=== PATIENT | female | born 1955 | race Caucasian/White ===

== ENCOUNTER 2017-05-05 17:47 | Inpatient (IN) | payer SELFPAY ==
[~2017-05-05] VITALS: Ht 160 cm; Wt 74.9 kg
[2017-05-05] MEDS ORDERED: Ondansetron 2 mg/mL 2 mL Inj IVPUSH PRN (18:55)
[2017-05-05] MEDS ORDERED: Alum-Mag Hydrox-Simeth 30 mL Suspension PO PRN ×2 (18:55)
[2017-05-05] MEDS ORDERED: Polyethylene Glycol (PEG) 17 Gm Powder PO PRN ×2 (18:55)
[2017-05-05 19:20] VITALS: BP 108/75; PULSE 101; RESP 16; O2SAT 98
--- NOTE | 2017-05-05 19:20 | NUR ---
Arrival to [facility] Patient arrives to [facility] at 1835 via transport gurney alert and oriented. Patient able to transfer self to bed. Patient arrives eating ice, patient and family advised that she will have to be NPO from this point until diet orders are clarified. Patient states she does have some pain to the abdomen but states is is currently at a tolerable level. Preexisting IV patent and saline locked until further orders are received. Care is ongoing.
[2017-05-05] MEDS ORDERED: HYDROmorphone 1 mg/mL Inj IVPUSH PRN (19:45)
[2017-05-05] MEDS: 0.9% Sodium Chloride 1,000 ML IV SCH (19:45)
[2017-05-05] MEDS: Ondansetron 2 mg/mL 2 mL Inj IVPUSH PRN (20:52)
[2017-05-05] MEDS: HYDROmorphone 1 mg/mL Inj IVPUSH PRN (20:52)
--- NOTE | 2017-05-05 23:27 | PCM.HPMED ---
Subjective Date of Service May 05, 2017 Primary Provider: Admitting Physician: Valarie Adorno DO Primary Care Physician: Kellen Attending Physician: Valarie Adorno DO Chief Complaint: Abdominal pain, nausea and vomiting. History of Present Illness: Ms. 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 Patient reports feeling fine yesterday and around 10:30 this morning she had some mild stomach pain, and suddenly developed 10/10 non radiating sharp left lower abdominal pain and intractable nausea and vomiting. He daughter, Janice, then urged her to the ED at [facility]. She reports many episodes similar to today over the last 5 years, but has declined to see a physician or visit the hospital. The daughter asked if this could be related to "drinking alcohol?" The patient does not believe she will withdraw from ETOH. She reports drinking plenty of water daily. She reports 30 pound weight loss in the last year without trying, although she states she doesn't eat much. She reports fevers, chills, nausea, vomiting, chronic dry cough, abdominal pain. She denies syncope, headache, chest pain, shortness of breath, diarrhea, dysuria. In the room patients vitals: T-37.1, HR-101, RR-16, BP-108/75, 98% 2L. CTA at [facility] - Upload was of very poor quality and a request was made for reupload. There was perinephric stranding, no stone reported, hydronephrosis of theleft side. at [facility] patient received: Levofloxacin, zofran, dilaudid IV, IV NS fluids. Notable Labs at [facility]. WBC 1.9, plt 121, Lipase 300, UA neg Review of Systems: A comprehensive review of systems was conducted with the patient and found to be negative except as above in the History of Present Illness. Allergies Coded Allergies: Penicillins (Verified Adverse Reaction, Severe, RED RASH ON ARMS, 05/05/17) Home Medications NONE. PMH Rib fx cercial strain, chronic back pain arthritis Surgical History Tubal ligation Family History Father - CHF Mother - Cervical cancer Social History Hx Alcohol Use: Yes (regularly, not everyday per pt) Hx Substance Use: Yes (Daily marijuana) Hx Tobacco Use: Yes Exam Vital Signs Vital Sign - Last Date Time Temp Pulse Resp B/P Pulse Ox O2 Delivery O2 Flow Rate FiO2 05/05/17 19:20 37.1 101 16 108/75 98 Nasal Cannula 2.00 Exam General: Lady lying in bed in acute distress, well-developed, well-nourished, appropriately interactive HEENT: Normocephalic, atraumatic. External ears without defect. Pupils equal, round, and reactive to light and accommodation. Anicteric sclerae, dry conjunctivae, and no lid lag. Oropharynx free of erythema and cobble stoning with dry mucosa. Neck: Supple with full range of motion. No jugular venous distension. No bruits. No lymphadenopathy or thyromegaly. Cardiovascular: Regular rate and rhythm with no murmurs, rubs, or gallops appreciated Pulmonary: Clear to auscultation bilaterally with no crackles, wheezes, or rhonchi. Normal respiratory effort with no use of accessory muscles. Abdomen: Bowel tones present. Soft, tender to palpation in left lower quadrant, rebound tenderness present, nondistended. No hepatosplenomegaly or masses appreciated. Extremities: No clubbing, cyanosis, edema, or lymphadenopathy appreciated. Skin: Normal temperature, turgor, and texture; no rash, ulcers, or subcutaneous nodules appreciated. Neurological: Cranial nerves grossly intact. Normal muscle strength, tone, and bulk. Reflexes, coordination, and sensory function within normal limits. No known gait impairment. Psychiatric: Normal mood and affect. Alert and oriented to person, place, and time. Assessment & Plan Ms. 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 Patient is admitted under inpatient status. Acute on Chronic Abdominal pain and nausea and vomiting. Present on admission. Active. - possibly 2nd to alcohol related pancreatitis, vs acute ureteral obstruction. - CT of poor quality, Left sided hydronephrosis and perinephric stranding, stone present in distal left ureter, possible diverticula with fecalith in descending colon. reviewed on admission but awaiting official read. - Elevated lipase of 300 at [facility]. - Likely bowel rest following urological intervention. - Consider GI consult. - Dr. Braswell with urology has been consulted, planning for stent placement tomorrow (discussed plan of care on admission). NPO after midnight. - Continue supportive care, IV fluids NS @ 100 ml / hr, IV zofran prn, IV Dilaudid. Leukopenia, Present on admission. Active. - WBC 1.9 - Patient also reports 30 pound weight loss in the last year. - Consider osteopathic resident consult. Thrombocytopenia, Present on admission. Active. - Platelets - 119. - Monitory. Alcohol use. - Patient does not believe she'll withdraw. - Low threshold for CIWA. History of HSV 2. - Last outbreak 1 week ago. Tobacco dependance - Does not believe she'll need nicotine patch. - Discussed tobacco cessation with patient. Acetaminophen for mild pain when necessary. Bowel regimen Senna and MiraLAX scheduled and PRN. Zofran when necessary for nausea and vomiting. SubQ heparin held for now. SCDs in place. High-risk medications: IV Dilaudid. Patient Status: Patient is admitted under inpatient status with expected length of stay greater than 2 midnights due to severity of presenting symptoms, risk of adverse event, and complexity of treatment plan. Pain Evaluation: Adequate Pain Control Resuscitation Status: DNR/DNI:Do Not Resuscitate/Intubate Attending Statement The patient was seen and examined together with house staff on 05/05/2017 and I agree with the history, exam and plan as outlined in the note above. CESAR BENNETT DO May 05, 2017 20:58 Valarie Adorno DO May 06, 2017 03:35
[2017-05-06] VITALS (12 sets, daily range): BP systolic 93–122; BP diastolic 60–83; PULSE 81–109; RESP 14–19; O2SAT 93–100
[2017-05-06] MEDS: HYDROmorphone 1 mg/mL Inj IVPUSH PRN (00:30)
[2017-05-06] MEDS ORDERED: HYDROmorphone 1 mg/mL Inj IVPUSH PRN (04:30)
[2017-05-06] MEDS ORDERED: cefTRIAXone Inj 1,000 MG in Dextrose 5% Minibag Plus 50 ML IV SCH (05:00)
[2017-05-06 05:15] LABS: Mean Corpuscular Hemoglobin 34.3 pg (27.0-35.0); Mean Corpuscular Volume 99.7 fL (81-100); Platelet Count 88 bil/L (150-400)
--- NOTE | 2017-05-06 05:32 | NUR ---
Activity Pt direct transfer from [place]. NPO for urology -stent placement this morning. NS @ 100 and swabs at bedside okay for dry mouth, per MD. IV Zofran given once at start of shift for N/V. Asymptomatic since dose given. IV Dilaudid 2mg given twice this shift for abdominal/shoulder pain. New orders for 0.5-1mg IV Dilaudid, has not had dose since 29. Per pt, pain levels currently 5 out of 10 with movement/activity only. Bowel tones present ,abdomen soft, round and tender to palpation.
[2017-05-06 05:33] LABS: BASOPHILS % (AUTO) 0 % (0-3); EOSINOPHILS % (AUTO) 0 % (0-5); MONOCYTES % (AUTO) 0 % (4-12); NEUTROPHILS % (AUTO) 86 % (40-74)
[2017-05-06 05:43] LABS: Magnesium 1.3 mg/dL (1.6-2.6)
[2017-05-06] MEDS ORDERED: Magnesium Sulf 4 Gm/100 mL H2O 4 GM in IV Premix 1 EACH IV ONE (07:40)
--- NOTE | 2017-05-06 07:48 | NUR ---
0730 notified that per [facility] (fax pending), blood culturesx2 positive for e. coli. Pt stable in bed. Will monitor.
[2017-05-06] MEDS: 0.9% Sodium Chloride 1,000 ML IV SCH ×3 (08:05→18:05)
[2017-05-06] MEDS ORDERED: 0.9% Sodium Chloride 1,000 ML IV ONE ×2 (08:05)
--- NOTE | 2017-05-06 09:38 | PCM.PNSURG ---
Subjective Visit Information: Reason for Visit Left Sided Abdominal Pain,Nausea And Vomiting Surgery/Surgery Date Post-Op Day # Date of Admission: May 05, 2017 at 18:59 Hospital Day # Objective Vital Sign- Last 8 Hours Date Time Temp Pulse Resp B/P Pulse Ox O2 Delivery O2 Flow Rate FiO2 05/06/17 08:02 96 93/65 96 Room Air 05/06/17 04:23 37.1 101 16 94/60 95 Nasal Cannula 2.00 Intake and Output- Last 8 Hour 05/06/17 Cumulative From/Thru 07:00 05/05/17 19:21 - 05/06/17 05:28 Intake Total 1152 ml 1152 ml Output Total 250 ml 250 ml Balance 902 ml 902 ml Intake Oral 400 ml 400 ml IV Total 752 ml 752 ml Output Urine Total 250 ml 250 ml # Voids 2 2 Result Diagram: 05/06/17 0505 05/06/17 0505 Assessment & Plan Impression LEFT hydroureteronephrosis of unclear etiology and, by report, E coli bacteremia Problems: Plan I spoke with Ms Lutz by phone for 22 minutes. I spoke with her daughter Janice Buckley for 14 minutes after speaking with Ms Lutz: pt requested I speak with her daughter. I reviewed with both of them: - The nature of her CT findings - That the hydro reflects partial urinary obstruction, which is likely contributing to her pain and her infection I repeatedly explained this to Ms Lutz until she voiced understanding. Her daughter expressed clear understanding. Pt appears to demonstrate some cognitive problems, which may stem from her alcoholism. I do think ureteral stent will improve her pain and hasten recovery from her bacteremia. Options were discussed: - Do nothing/wait and see - Cysto, stent placement We discussed the temporary nature of the stent in great detail - [place] pt experience postop We discussed risks at length She and her daughter understand the stent must be removed at some point; if she fails to comply, she could injure her kidney or risk loss of its function. Ultimately, they wished to proceed. Resuscitation Status: DNR/DNI:Do Not Resuscitate/Intubate Nerissa Braswell MD May 06, 2017 09:38
--- NOTE | 2017-05-06 10:20 | NUR ---
Status MD notified/aware of low trending BP's (which pt states is baseline) and mild tachycardia (resolved) so far this am). Other VSS. MD notified of urology plan for cystoscopy and left ureteral stent. Per MD, may wait for fluid bolus completion to hang magnesium. Pt pain controlled. VSS Will continue to monitor
[2017-05-06] MEDS: cefTRIAXone Inj 2,000 MG in Dextrose 5% Minibag Plus 50 ML IV SCH ×2 (11:00→11:51)
--- NOTE | 2017-05-06 11:35 | PCM.HPSURG ---
Subjective Date of Service: May 06, 2017 Referring Provider: Admitting Physician: Valarie Adorno DO Primary Care Physician: Nopcp Attending Physician: Paco Rajan MD Chief Complaint 61 F with LEFT abdominal pain and hydroureteronephrosis. History of Present Illness Ms Lutz is a 61 F with moderate LEFT hydro and abdominal pain. By report, 2 bottles of blood cx returned + for E coli. She has had low BPs and has been intermittently tachycardic. She now presents for LEFT ureteral stent after detailed discussion with her and her daughter. Allergy Allergies: Coded Allergies: Penicillins (Verified Adverse Reaction, Severe, RED RASH ON ARMS, 05/05/17) Social History Hx Alcohol Use: Yes (regularly, not everyday per pt) Hx Substance Use: Yes (Daily marijuana) Hx Tobacco Use: Yes PMH HEENT History History of ENT Problems?: No Cardiovascular History History of Heart Problems?: No Respiratory History of Respiratory Problem: No Neurological History Hx Neurologic Problems?: No Neurological History: Positive for:: Headaches (yes, lately) Denies:: Alzheimer's Disease CVA Dementia Dizziness Parkinson's Disease Seizures Gastrointestinal History HX of GI Problems?: No Gastrointestinal History: Positive for:: Heartburn Denies:: Diverticulitis Gastrointestinal Bleeding Hepatitis Hiatal Hernia Rectal Bleeding Genitourinary History Hx of Gu Problems?: No Musculoskeletal History Hx Musculoskeletal Problems?: No Musculoskeletal History: Denies:: Back Injury Joint Replacement Musculoskeletal Trauma Psycho Social History Hx of Psycho/Social Problems?: No Psycho Social History: Denies:: Anxiety Bipolar Disorder Hx Depression Suicide Attempt Other History Other History: Denies:: Cancer Hospitalization Thyroid Disease Diabetes: No Social History Hx Alcohol Use: Yes (regularly, not everyday per pt)Hx Substance Use: Yes ( Daily marijuana)Hx Tobacco Use: Yes Assessment & Plan Assessment LEFT hydro VTE Mechanical Devices: Intermittant Pneumatic CD Plan: Cysto, LEFT ureteral stent Resuscitation Status: DNR/DNI:Do Not Resuscitate/Intubate Nerissa Braswell MD May 06, 2017 11:35
[2017-05-06] MEDS ORDERED: Dexamethasone 4 mg/mL Inj ONE (11:51)
[2017-05-06] MEDS ORDERED: Propofol 10 mg/mL 20 mL Inj ONE (11:51)
[2017-05-06] MEDS ORDERED: Lactated Ringer's 1,000 ML IV ONE (11:51)
[2017-05-06] MEDS ORDERED: Ondansetron 2 mg/mL 2 mL Inj ONE (11:51)
[2017-05-06] MEDS ORDERED: Phenylephrine/NS 100 mCg/mL 10 mL Syringe IVPUSH ONE (11:51)
[2017-05-06] MEDS ORDERED: fentaNYL-PF 50 mCg/mL 2 mL Inj ONE (11:51)
[2017-05-06] MEDS ORDERED: MetoCLOpramide 5 mg/mL 2 mL Inj ONE (11:51)
[2017-05-06] MEDS ORDERED: Glycopyrrolate 0.2 MG/ML 1mL Inj ONE (11:51)
--- NOTE | 2017-05-06 11:53 | NUR ---
OR Pt to OR at about 1140. Stable. Chart with pt. Magnesium provided prior to transport. OR to hang 1100 antibiotic. Addendum: 05/06/17 at 1402 by RUDY INMAN RN Pt back from OR at 1250. Stable and w/o complaints. Fatigued. VSS. Placed on CPOX. To advance diet as tolerated. Expectations post op explained by OR staff to pt and family. Will monitor.
[2017-05-06] MEDS ORDERED: Lactated Ringer's 1,000 ML IV SCH (12:12)
[2017-05-06] MEDS ORDERED: Lactated Ringer's 500 ML IV PRN (12:12)
[2017-05-06] MEDS ORDERED: MetoCLOpramide 5 mg/mL 2 mL Inj IVPUSH PRN (12:15)
[2017-05-06] MEDS ORDERED: Atropine 0.4 mg/mL Inj IVPUSH PRN (12:15)
[2017-05-06] MEDS ORDERED: EPHEDrine Sulfate 50 mg/mL Inj IVPUSH PRN (12:15)
[2017-05-06] MEDS ORDERED: Ondansetron 2 mg/mL 2 mL Inj IVPUSH PRN (12:15)
[2017-05-06] MEDS ORDERED: Labetalol 5 mg/mL 20 mL Inj IV PRN (12:15)
[2017-05-06] MEDS ORDERED: Albuterol-Ipratropium 3 mL Inhalation Solution NEB PRN (12:15)
[2017-05-06] MEDS ORDERED: Phenylephrine 10,000 mCg/mL Inj IVPUSH PRN (12:15)
[2017-05-06] MEDS ORDERED: fentaNYL-PF 50 mCg/mL 2 mL Inj IVPUSH PRN (12:15)
--- NOTE | 2017-05-06 12:18 | PCM.PNMED ---
Subjective Date of Service May 06, 2017 Subjective Continues to have left flank pain. BP low. Tachycardic. Blood cultures collected at [facility] growing Escherichia coli 2 Exam Vital Signs Vital Sign - Last Date Time Temp Pulse Resp B/P Pulse Ox O2 Delivery O2 Flow Rate FiO2 05/06/17 09:45 94/62 05/06/17 09:33 36.8 05/06/17 08:02 96 96 Room Air 05/06/17 04:23 16 2.00 Intake and Output 05/05/17 05/05/17 05/06/17 Cumulative From/Thru 15:00 23:00 07:00 05/05/17 19:21 - 05/06/17 05:28 Intake Total 1152 ml 1152 ml Output Total 250 ml 250 ml Balance 902 ml 902 ml Intake Oral 400 ml 400 ml IV Total 752 ml 752 ml Output Urine Total 250 ml 250 ml # Voids 2 2 Exam General: Lady lying in bed in acute distress, well-developed, well-nourished, appropriately interactive HEENT: Normocephalic, atraumatic. External ears without defect. Pupils equal, round, and reactive to light and accommodation. Anicteric sclerae, dry conjunctivae, and no lid lag. Oropharynx free of erythema and cobble stoning with dry mucosa. Neck: Supple with full range of motion. No jugular venous distension. No bruits. No lymphadenopathy or thyromegaly. Cardiovascular: Regular rate and rhythm with no murmurs, rubs, or gallops appreciated Pulmonary: Clear to auscultation bilaterally with no crackles, wheezes, or rhonchi. Normal respiratory effort with no use of accessory muscles. Abdomen: Bowel tones present. Soft, tender to palpation in left lower quadrant, rebound tenderness present, nondistended. No hepatosplenomegaly or masses appreciated. Extremities: No clubbing, cyanosis, edema, or lymphadenopathy appreciated. Skin: Normal temperature, turgor, and texture; no rash, ulcers, or subcutaneous nodules appreciated. Neurological: Cranial nerves grossly intact. Normal muscle strength, tone, and bulk. Reflexes, coordination, and sensory function within normal limits. No known gait impairment. Psychiatric: Normal mood and affect. Alert and oriented to person, place, and time. IVs and Medications Medications Reviewed: Medications were reviewed in detail Lab and Diagnostics Result Diagram: 05/06/17 0505 05/06/17 0505 Assessment & Plan Ms. 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 Patient is admitted under inpatient status. # severe sepsis due to left pyelonephritis and susepected pyonephrosis,poa, active,acute -HR 109, BP 92/65, bandemia 20%, initial leukopenia - CT of poor quality, Left sided hydronephrosis and perinephric stranding, stone present in distal left ureter, possible diverticula with fecalith in descending colon. reviewed on admission but awaiting official read. Toscopy - Dr. Braswell with urology has been consulted, planning for stent placement - Continue supportive care, 2 L NS bolus given today due to hypotension. IV fluids NS @ 100 ml / hr, IV zofran prn, IV Dilaudid. -Blood cultures 2 collected at [facility] growing Escherichia coli. Repeat blood culture sent -Ceftriaxone 2 g every 24h #Escherichia coli bacteremia -Due to above #Thrombocytopenia, Present on admission. Active. - Platelets - 119. - Monitory. #Alcohol use. - Patient does not believe she'll withdraw. - Low threshold for CIWA. #History of HSV 2. - Last outbreak 1 week ago. #Tobacco dependance - Does not believe she'll need nicotine patch. - Discussed tobacco cessation with patient. Acetaminophen for mild pain when necessary. Bowel regimen Senna and MiraLAX scheduled and PRN. Zofran when necessary for nausea and vomiting. SubQ heparin held for now. SCDs in place. High-risk medications: IV Dilaudid. Disposition:2-3 days VTE Mechanical Devices: Intermittant Pneumatic CD Resuscitation Status: DNR/DNI:Do Not Resuscitate/Intubate Paco Rajan MD May 06, 2017 12:18
[2017-05-06 12:45] LABS: APPEARANCE,URINE CLEAR (CLEAR,HAZY); COLOR,URINE YELLOW (YELLOW); OCCULT BLOOD,URINE SMALL (NEGATIVE); UROBILINOGEN,URINE NORMAL (NORMAL)
--- NOTE | 2017-05-06 13:04 | OP ---
[address] [address] OPERATIVE REPORT PATIENT: VU EVANGELISTA : 1955 MR#: [id number] ADMIT: 05/05/2017 JOB ID: [id number] DATE OF SURGERY: 05/06/2017 SURGEON: Nerissa Braswell MD BRONZER: None. PREOPERATIVE DIAGNOSIS(ES): Left hydroureteronephrosis. POSTOPERATIVE DIAGNOSIS(ES): Left hydroureteronephrosis. PROCEDURE PERFORMED: 1. Cystoscopy. 2. Left retrograde pyelogram. 3. Left ureteral stent placement. FINDINGS: 1. Essentially normal left retrograde pyelogram without finding of hydronephrosis or any filling defect. 2. Normal appearing bladder. 3. Orthotopic ureteral orifices. ANESTHESIA: General. ESTIMATED BLOOD LOSS: None. DRAINS: A 6 x 22 left double-J ureteral stent. COMPLICATIONS: None. CONDITION: Stable. INDICATION FOR PROCEDURE: The patient is a 61-year-old woman with left abdominal pain and a finding of moderate left hydroureteronephrosis. She now presents for the aforementioned procedure. DESCRIPTION OF PROCEDURE: After informed consent was obtained, the patient was taken to the operating room. A time-out was performed identifying correct patient, surgical site, and procedure. General anesthesia was smoothly induced. She was given intravenous antibiotics just prior to start of procedure. She was placed in the lithotomy position and all pressure points were identified and appropriately padded. Her genitals were then prepped and draped in the usual sterile fashion. A 22-Moldovan rigid cystoscope was applied to patient's urethra and advanced into the bladder. The bladder was drained. The bladder was inspected. It appeared normal. The left ureteral orifice was cannulated with a 5-Moldovan open-ended Pollack catheter. Retrograde pyelogram was performed. It appeared normal. A Sensor tip wire was advanced through the Pollack into the renal pelvis as seen under fluoroscopy. The Pollack was then removed. A 6 x 22 double-J ureteral stent was loaded over it and advanced into the renal pelvis as seen under fluoroscopy. The wire was then removed, leaving a nice coil in the patient's bladder as seen under direct vision. The bladder was drained. The patient was then reversed from general anesthesia and taken to the PACU in good and stable condition. [facility]
--- NOTE | 2017-05-06 13:39 | DRSVH ---
PROCEDURE: X-RAY RETROGRADE UROGRAPHY INDICATIONS: STENT TECHNIQUE: 5 intra-operative images acquired by the Urology service. COMPARISON: Outside Film, CT, CT ABD PELVIS W CON, 05/05/2017, 14:45. FINDINGS: Contrast is injected and partial visualization of the ureter and collecting system of the urinary tract evaluated is obtained. The laterality of the urinary tract evaluated is not provided, but presumably from CT scanning one day ago it is on the left. The prior CT comparison study is from [facility]. The final image available for review it shows a ureteral stent with upper pigtail partially visualized in the central renal collecting system, and the bladder region of the st ent is not available for review. IMPRESSION: Limited study as discussed, presumably reflecting a procedure performed at the left urina ry tract. Stent in place, partially visualized on the final image of the examination. The upper thi rd of the stent is partially visualized, the lower two thirds is not available for review. Dictated by: Justin Abernathy M.D. on 05/06/2017 at 13:33 Approved by: Justin Abernathy M.D. on 05/06/2017 at 13:37
--- NOTE | 2017-05-06 14:40 | PCM.HPANE ---
Patient Data Surgeon Admitting Provider:Valarie Adorno DO Attending Provider:Paco Rajan MD Primary Care Physician:Kellen Other Provider: Reason for Visit Left Sided Abdominal Pain,Nausea And Vomiting Ht/WT & BMI Height (Feet): 5 Height (Inches): 3.00 Weight (Kilograms): 74.900 Body Mass Index 29.26 Allergies Coded Allergies: Penicillins (Verified Adverse Reaction, Severe, RED RASH ON ARMS, 05/05/17) Past Anesthesia History Anesthesia History: Denies:: Abnormal Airway, Anesthesia Reactions, Difficult Intubation, Fam Anesthesia Reaction, Fam Malignant Hypertherm, Malignant Hyperthermia Diabetes History Hx Diabetes?: No MRSA MRSA: No History History of ENT Problems?: No HEENT History: Denies:: Abnormal Airway Cataracts Difficult Intubation Dysphagia Glaucoma Hearing Problem Sinus Problem TMJ Denture Type: Full- Upper Full- Lower Teeth Condition: Within Normal Limits Hx of Heart Problems?: No Cardiovascular History: Denies:: AICD Abdominal Aortic Aneurism Atrial Fibrillation Cardiac Surgery Chest Pain Congestive Heart Failure Coronary Artery Disease Edema Heart Murmur Hypertension Irregular Heartbeat Pacemaker Peripheral Vascular Rheumatic Fever Thrombophlebitis Valvular Heart Disease Hx of Respiratory Problem?: No Respiratory History: Denies:: Asthma COPD Chest Surgery Cough Dyspnea Emphysema Hemoptysis Oxygen Administration Pneumonia Pulmonary Embolism Tuberculosis Use of C-PAP Machine Use of Inhalers / NEBS Hx Neurologic Problems?: No Neurological History: Positive for:: Headaches (yes, lately) Denies:: Alzheimer's Disease CVA Dementia Dizziness Multiple Sclerosis Parkinson's Disease Peripheral Neuropathy Seizures TIA Hx of GI Problems?: No Gastrointestinal History: Denies:: Cirrhosis Diverticulitis Gall Bladder Disease Gastroesphageal Reflux Gastrointestinal Bleeding Heartburn Hepatitis Hiatal Hernia Liver Disease Rectal Bleeding Hx of Problems?: No Genitourinary History: Denies:: HX of Hemodialysis Kidney Stones Urinary Tract Infection HX of Peritoneal Dialysis: No Female Hx: Denies:: Currently Endometriosis Pelvic Inflammatory Problems with Breasts? Skin History: Denies:: History Skin Disorders? Pressure Ulcers Hx Musculoskeletal Problems?: No Musculoskeletal History: Denies:: Back Injury Degenerative Joint Fibromyalgia Joint Replacement Musculoskeletal Trauma Myasthenia Gravis Osteoarthritis Rheumatoid Arthritis Systemic Lupus Hx of Psycho/Social Problems?: No Psycho Social History: Denies:: Anxiety Bipolar Disorder Hx Depression Suicide Attempt Hx Surgeries?: Yes ("tubes tied") Other History: Denies:: Cancer Hospitalization Thyroid Disease History Blood Transfusions: Positive for:: Accept Blood Products? Denies:: Blood Transfuse Reaction Blood Transfusions Hx Diabetes: No Hx Alcohol Use: Yes (regularly, not everyday per pt)Hx Substance Use: Yes ( Daily marijuana)Have You Smoked inLast 12 mo: YesApprox How Many Cigarettes/day : 10 Stop/Bang Treated for Sleep Apnea?: No Do You Have a CPAP Machine?: No S-Snoring: Do You Snore Loudly: Yes T-Tired: feel tired, fatigued: No O-Obsered: Observed not breath: No P-Blood Pressure: treated: No B- Body Mass Index > 35 kg/m2: No A- Age over 50: Yes N- Neck Large Circumference: Yes G- Gender Male: No TRISH Total Score: 2 Risk Assessment Category Category 1A: Patient has history of documented sleep apnea, and HAS NOT received any narcotic, sedative or anesthesia administration during this stay. Category 1B: Patient has history of documented sleep apnea, and HAS received any narcotic , sedative or anesthesia administration during this stay Category 2: Patient has SUSPECTED Obstructive Sleep Apnea, and HAS received any narcotic , sedative or anesthesia administration during this stay. Category 3: Patient has SUSPECTED Obstructive Sleep Apnea and HAS NOT received narcotic, sedative or anesthesia administration during this stay. Category 4: Outpatient in Procedural Areas with known sleep apnea or who screen positive for High Risk via the STOP/BANG questionnaire. Exam Exam Vital Signs Vital Signs Date Time Temp Pulse Resp B/P Pulse Ox O2 Delivery O2 Flow Rate FiO2 05/06/17 09:45 94/62 05/06/17 09:33 36.8 05/06/17 08:02 96 93/65 96 Room Air 05/06/17 04:23 37.1 101 16 94/60 95 Nasal Cannula 2.00 General Appearance: Alert, Oriented X3, Cooperative, No Acute Distress HEENT/AIRWAY: MP 2, Neck Movement, Mouth Opening (3 FBMO) Lungs: Clear to Auscultation, Normal Air Movement Heart: Exam Unremarkable, Regular Rate/Rhythm, No Murmurs/Rubs/Gallops Meds/Labs/Diagnostics Admission Meds Current Medications Sodium Chloride 1,000 ml @ 100 mls/hr Q10H IV Last administered on 05/05/17t 19:45; Start 05/05/17 at 19:45 Ceftriaxone Sodium 1000 mg/ Dextrose/Water 50 ml @ 100 mls/hr Q24H IV Last administered on 05/06/17 05:21; Start 05/06/17 at 05:00; Stop 05/06/17 at 08:05 ; Status DC Sodium Chloride 1,000 ml @ 0 mls/hr Q0M ONCE IV Last administered on 08:12; Start 05/06/17 at 08:05; Stop 05/06/17 at 08:14; Status DC Sodium Chloride (Normal Saline) 1,000 ml @ 0 mls/hr Q0M ONCE IV Last administered on 05/06/17 10:00; Start 05/06/17 at 08:05; Stop 05/06/17 at 08:32 ; Status DC Labs Test 05/06/17 05:05 White Blood Count 9.5th/mm3 (3.8-10.1) Red Blood Count 3.73mil/mm3 (3.90-5.20) Hemoglobin 12.8g/dL (12.0-15.6) Hematocrit 37.2% (35.0-46.0) Mean Corpuscular Volume 99.7fL (81-100) Mean Corpuscular Hemoglobin 34.3pg (27.0-35.0) Mean Corpuscular Hemoglobin Concent 34.4% (32.0-37.0) Red Cell Distribution Width 14.0% (12.3-15.4) Platelet Count 88bil/L (150-400) Neutrophils (%) (Auto) 86% (40-74) Lymphocytes (%) (Auto) 3% (14-46) Monocytes (%) (Auto) 0% (4-12) Eosinophils (%) (Auto) 0% (0-5) Basophils (%) (Auto) 0% (0-3) Band Neutrophils % 20% (1-5) Metamyelocytes % 1% (0-0) Hematology Comments Sodium Level 137mEq/L (134-144) Potassium Level 4.4mEq/L (3.5-5.2) Chloride Level 104mEq/L (97-108) Carbon Dioxide Level 21mmol/L (18-29) Blood Urea Nitrogen 13mg/dL (8-27) Creatinine 0.77mg/dL (0.57-1.00) Estimat Glomerular Filtration Rate 110mL/min (>59) Glucose Level 101mg/dL (60-99) Calcium Level 7.6mg/dL (8.5-10.1) Magnesium Level 1.3mg/dL (1.6-2.6) Total Bilirubin 0.4mg/dL (0.0-1.2) Aspartate Amino Transf (AST/SGOT) 40U/L (0-50) Alanine Aminotransferase (ALT/SGPT) 22U/L (0-32) Alkaline Phosphatase 50U/L (25-165) Total Protein 5.4g/dL (6.4-8.4) Albumin 3.2g/dL (3.4-5.0) Lipase 11U/L (13-60) Plan Impression Patient chart reviewed, patient interviewed and anesthestic plan with risks, benefits, and alternatives discussed, and informed consent obtained. NPO per Anesth. Guidelines: Yes ASA Physical Status: ASA2 Mod Systemic Disease Anesthetic Plan: GA Bene/Risks/Altern/Consents: Yes HP Complete Prior to Induction: Yes Rodríguez Tidwell MD May 06, 2017 10:59
--- NOTE | 2017-05-06 14:41 | PCM.ANEP1 ---
Post Anesthesia PACU Phase 1 Assessment Vital Signs Vital Signs Date Time Temp Pulse Resp B/P Pulse Ox O2 Delivery O2 Flow Rate FiO2 05/06/17 12:55 36.6 101 15 110/76 95 Room Air 05/06/17 12:41 37.2 91 19 101/67 94 Room Air 05/06/17 12:36 94 16 103/71 96 Room Air 05/06/17 12:31 100 17 109/72 96 Room Air 05/06/17 12:26 94 14 103/67 100 Simple Mask 8 05/06/17 12:21 36.9 90 19 96/83 100 Simple Mask 8 05/06/17 09:45 94/62 05/06/17 09:33 36.8 05/06/17 08:02 96 93/65 96 Room Air Anesthetic Administered: GA Level of Alertness: Awake, talking OSBORN's with Equal Strength: Yes Pain: No (RN- in room) Pain Scale Score: 7 Nausea or Vomiting: No CV Function & Hydration Stable: No Airway Device: n/a Oxygen Delivery: Room Air Lungs: Clear to Auscultation, Normal Air Movement Dermatome Level: Full Sensation PACU Phase 2 Assessment Complications: No Follow up Care: N/A Patient Instructions Provided: N/A Rodríguez Tidwell MD May 06, 2017 14:41
[2017-05-06] MEDS: oxyCODONE-Acetamin 10-325 mg Tablet PO PRN ×2 (15:29→21:57)
[2017-05-06] MEDS ORDERED: OMEP20TA24 PO (18:20)
[2017-05-06] MEDS ORDERED: NAPR220C11 PO (18:20)
[2017-05-07 00:28] VITALS: BP 119/80; PULSE 86; RESP 16; O2SAT 95
[2017-05-07] MEDS: 0.9% Sodium Chloride 1,000 ML IV SCH ×3 (00:31→14:05)
[2017-05-07 04:50] VITALS: BP 115/75; PULSE 70; RESP 18; O2SAT 92
[2017-05-07] MEDS ORDERED: cefTRIAXone Inj 2,000 MG in Dextrose 5% Minibag Plus 50 ML IV SCH (05:00)
--- NOTE | 2017-05-07 05:00 | NUR ---
pain pts pain has been well controlled with 1 percocet every 5-6 hrs this shift. her pain is in the left side of her back and is a 6/10 at its worst with 5/10 being tolerable. she has been getting up to the bedside commode independently and is steady on her feet. she has no complaints of pain with urination. her urine has progressively gotten transportation officer throughout the shift it was dark brown at HS and this morning is rosie with sediment. she is resting comfortably in bed at this time. care continues.
[2017-05-07 08:25] LABS: Mean Corpuscular Volume 100.3 fL (81-100)
[2017-05-07 08:29] LABS: Mean Corpuscular Hemoglobin 34.9 pg (27.0-35.0); Platelet Count 70 bil/L (150-400)
[2017-05-07] MEDS: Ondansetron 2 mg/mL 2 mL Inj IVPUSH PRN (08:31)
[2017-05-07 08:46] LABS: Magnesium 1.9 mg/dL (1.6-2.6)
[2017-05-07 09:19] LABS: MONOCYTES % (AUTO) 2 % (4-12); NEUTROPHILS % (AUTO) 76 % (40-74)
[2017-05-07 09:20] LABS: BASOPHILS % (AUTO) 0 % (0-3); EOSINOPHILS % (AUTO) 0 % (0-5)
--- NOTE | 2017-05-07 10:00 | NUR ---
Rounds Per ok to dc IV fluids. Pt stable this am. Encouraging po intake. Pain controlled. Will monitor.
[2017-05-07 10:37] VITALS: BP 120/76; PULSE 78; RESP 18; O2SAT 95
[2017-05-07] MEDS: cefTRIAXone Inj 2,000 MG in Dextrose 5% Minibag Plus 50 ML IV SCH (12:41)
[2017-05-07] MEDS: oxyCODONE-Acetamin 10-325 mg Tablet PO PRN (12:58)
--- NOTE | 2017-05-07 14:35 | PCM.PNMED ---
Subjective Date of Service May 07, 2017 Subjective Continues to have flank pain . Afebrile. Exam Vital Signs Vital Sign - Last Date Time Temp Pulse Resp B/P Pulse Ox O2 Delivery O2 Flow Rate FiO2 05/07/17 10:37 36.8 78 18 120/76 95 Room Air 05/06/17 12:26 8 Intake and Output 05/06/17 05/06/17 05/07/17 Cumulative From/Thru 15:00 23:00 07:00 05/05/17 19:21 - 05/07/17 06:29 Intake Total 650 ml 3215 ml 600 ml 5617 ml Output Total 1200 ml 650 ml 2100 ml Balance 650 ml 2015 ml -50 ml 3517 ml Intake Oral 600 ml 600 ml 1600 ml IV Total 650 ml 2615 ml 4017 ml Output Urine Total 1200 ml 650 ml 2100 ml # Voids 2 # Bowel Movements 0 0 Exam General: Lady lying in bed in acute distress, well-developed, well-nourished, appropriately interactive HEENT: Normocephalic, atraumatic. External ears without defect. Pupils equal, round, and reactive to light and accommodation. Anicteric sclerae, dry conjunctivae, and no lid lag. Oropharynx free of erythema and cobble stoning with dry mucosa. Neck: Supple with full range of motion. No jugular venous distension. No bruits. No lymphadenopathy or thyromegaly. Cardiovascular: Regular rate and rhythm with no murmurs, rubs, or gallops appreciated Pulmonary: Clear to auscultation bilaterally with no crackles, wheezes, or rhonchi. Normal respiratory effort with no use of accessory muscles. Abdomen: Bowel tones present. Soft, tender to palpation in left lower quadrant, rebound tenderness present, nondistended. No hepatosplenomegaly or masses appreciated. Extremities: No clubbing, cyanosis, edema, or lymphadenopathy appreciated. Skin: Normal temperature, turgor, and texture; no rash, ulcers, or subcutaneous nodules appreciated. Neurological: Cranial nerves grossly intact. Normal muscle strength, tone, and bulk. Reflexes, coordination, and sensory function within normal limits. No known gait impairment. Psychiatric: Normal mood and affect. Alert and oriented to person, place, and time. IVs and Medications Medications Reviewed: Medications were reviewed in detail Lab and Diagnostics Result Diagram: 05/07/1715 8/20/17 0815 X-Rays, CTs and MRIs PROCEDURE: X-RAY RETROGRADE UROGRAPHY INDICATIONS: STENT TECHNIQUE: 5 intra-operative images acquired by the Urology service. COMPARISON: Outside Film, CT, CT ABD PELVIS W CON, 05/05/2017, 14:45. FINDINGS: Contrast is injected and partial visualization of the ureter and collecting system of the urinary tract evaluated is obtained. The laterality of the urinary tract evaluated is not provided, but presumably from CT scanning one day ago it is on the left. The prior CT comparison study is from [facility]. The final image available for review it shows a ureteral stent with upper pigtail partially visualized in the central renal collecting system, and the bladder region of the stent is not available for review. IMPRESSION: Limited study as discussed, presumably reflecting a procedure performed at the left urinary tract. Stent in place, partially visualized on the final image of the examination. The upper third of the stent is partially visualized, the lower two thirds is not available for review. Dictated by: Justin Abernathy M.D. on 05/06/2017 at 13:33 Additional Diagnostics DATE OF SURGERY: 05/06/2017 SURGEON: Nerissa Braswell MD SENIOR RD ENGINEER: None. PREOPERATIVE DIAGNOSIS(ES): Left hydroureteronephrosis. POSTOPERATIVE DIAGNOSIS(ES): Left hydroureteronephrosis. PROCEDURE PERFORMED: 1. Cystoscopy. 2. Left retrograde pyelogram. 3. Left ureteral stent placement. FINDINGS: 1. Essentially normal left retrograde pyelogram without finding of hydronephrosis or any filling defect. 2. Normal appearing bladder. 3. Orthotopic ureteral orifices. ANESTHESIA: General. ESTIMATED BLOOD LOSS: None. DRAINS: A 6 x 22 left double-J ureteral stent. COMPLICATIONS: None. CONDITION: Stable. Assessment & Plan Ms. 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 Patient is admitted under inpatient status. # severe sepsis due to left pyelonephritis ,poa,active,acute -initial HR 109, BP 92/65, bandemia 20%, initial leukopenia - CT of poor quality, Left sided hydronephrosis and perinephric stranding, stone present in distal left ureter, possible diverticula with fecalith in descending colon. reviewed on admission but awaiting official read. Toscopy - Dr. Braswell with urology has been consulted, planning for stent placement - Continue supportive care, 2 L NS bolus given today due to hypotension. treated with IV fluids NS @ 100 ml / hr, IV zofran prn, IV Dilaudid. -Blood cultures 2 collected at [facility] growing Escherichia coli. Repeat blood culture here NGTD -Ceftriaxone 2 g every 24h #Escherichia coli bacteremia -Due to above #Thrombocytopenia, Present on admission. Active. -due to acohol - Platelets - 119. - Monitory. #Alcohol use. - Patient does not believe she'll withdraw. - Low threshold for CIWA. #History of HSV 2. - Last outbreak 1 week ago. #Tobacco dependance - Does not believe she'll need nicotine patch. - Discussed tobacco cessation with patient. Acetaminophen for mild pain when necessary. Bowel regimen Senna and MiraLAX scheduled and PRN. Zofran when necessary for nausea and vomiting. SubQ heparin held for now. SCDs in place. High-risk medications: IV Dilaudid. Disposition:tomorrow pending sensitivity of blood culture at [facility] Mechanical Devices: Intermittant Pneumatic CD Resuscitation Status: DNR/DNI:Do Not Resuscitate/Intubate Paco Rajan MD May 07, 2017 14:35
--- NOTE | 2017-05-07 17:59 | NUR ---
Activity Pt ambulated in hallway this evening, pain controlled, patient tolerated well. States she i "feeling much better". Urine yellow/clear. No n/v/d. Will continue to monitor.
[2017-05-07 18:41] VITALS: BP 129/85; PULSE 85; RESP 14; O2SAT 94
[2017-05-08] MEDS: 0.9% Sodium Chloride 1,000 ML IV SCH ×2 (00:05→10:05)
[2017-05-08 04:37] VITALS: BP 128/81; PULSE 82; RESP 16; O2SAT 94
--- NOTE | 2017-05-08 05:14 | NUR ---
activity pt has had an uneventful shift. she has denied any pain. she has been resting comfortably in bed and using the BSC independently. care continues.
[2017-05-08 08:47] VITALS: BP 145/74; PULSE 71; RESP 18; O2SAT 95
[2017-05-08 08:50] LABS: BASOPHILS % (AUTO) 0.1 % (0-3); EOSINOPHILS % (AUTO) 0.4 % (0-5); MONOCYTES % (AUTO) 4.3 % (4-12); Mean Corpuscular Hemoglobin 34.5 pg (27.0-35.0); Mean Corpuscular Volume 98.3 fL (81-100); NEUTROPHILS % (AUTO) 85.5 % (40-74); Platelet Count 82 bil/L (150-400)
--- NOTE | 2017-05-08 09:51 | PCM.PNSURG ---
Subjective Visit Information: Reason for Visit Left Sided Abdominal Pain,Nausea And Vomiting Surgery/Surgery Date CYSTOSCOPY/L URETERAL STENT 05/06/17 Post-Op Day # Date of Admission: May 05, 2017 at 18:59 Hospital Day # Objective Vital Sign- Last 8 Hours Date Time Temp Pulse Resp B/P Pulse Ox O2 Delivery O2 Flow Rate FiO2 05/08/17 08:47 36.8 71 18 145/74 95 Room Air 05/08/17 04:37 37.1 82 16 128/81 94 Room Air Intake and Output- Last 8 Hour 05/08/17 Cumulative From/Thru 07:00 05/05/17 19:21 - 05/08/17 05:23 Intake Total 640 ml 8423 ml Output Total 600 ml 3950 ml Balance 40 ml 4473 ml Intake Oral 640 ml 3076 ml IV Total 5347 ml Output Urine Total 600 ml 3950 ml # Voids 2 4 # Bowel Movements 0 Result Diagram: 05/08/17 0823 05/08/17 0823 Assessment & Plan Plan Ms Lutz is scheduled for outpatient follow up with me 05/15/17 at 3 PM with 2: 45 PM check in time at Urology clinic ([facility]) Resuscitation Status: DNR/DNI:Do Not Resuscitate/Intubate Nerissa Braswell MD May 08, 2017 09:51
[2017-05-08] MEDS ORDERED: cefTRIAXone Inj 2,000 MG in Dextrose 5% Minibag Plus 50 ML IV SCH (11:00)
--- NOTE | 2017-05-08 11:06 | PCM.DIMED ---
Discharge Instructions Date of Service May 08, 2017 Dates of Hospitalization May 05, 2017 at 18:59 Discharge Diagnosis Discharge Diagnosis # severe sepsis due to left pyelonephritis ,poa,active,acute #Escherichia coli bacteremia #Thrombocytopenia, Present on admission. Active. #Alcohol use. #History of HSV 2. #Tobacco dependance Diet Discharge Diet: No restrictions Activity Discharge Activity: Limited until seen by PCP Call your provider Call your provider for: Fever or Chills, Shortness of breath, Bleeding, Chest pain, Vomitting, Excessive diarrhea, Weakness (unilateral) Patient Instructions Patient Instructions You were hospitalized due to left pyelonephritis and hydronephrosis. Cystoscopy did not reveal hydronephrosis.You also had Escherichia coli bacteremia. Please continue Keflex for 10 more days. Please follow-up with urologist on 05/15/17 at 3 PM with 2:45 PM check in time at Urology clinic ([facility]). Please follow up with new PCP in 1-2 weeks.valacyclovir prescribed for herpes . please take 2000 mg by mouth every 12 hours for 1 day and start DIGNA after onset of symptom. Follow-up with PCP in: 1 week Provider: Nerissa Braswell MD Follow-up in: 1 week Paco Rajan MD May 08, 2017 11:06
[2017-05-08] MEDS ORDERED: OXYC-466 PO (11:08)
[2017-05-08] MEDS ORDERED: VALA100026 PO (11:08)
[2017-05-08] MEDS ORDERED: CEPH-512 PO (11:10)
--- NOTE | 2017-05-08 13:04 | NUR ---
Social Work- Initial Assessment/Discharge Data: See Initial Assessment. Pt is a 61 year old female admitted for left side abdominal pain per H&P. Pt screened in for assessment due to insurance. Pt has no PCP or insurance at this time. Pt is medically ready for d/c, discharge orders active. Pt discussed in multidisciplinary rounds, pt will require PCP follow up within two weeks of hospitalization. Pt has no PCP or insurance at this time. aware of this, requested that ELEVATING GRADER OPERATOR make referral to [place] or [facility]. [facility] has been working on scheduling PCP appointment, [facility] is booked out until June. Pt could go to [facility] and this would be covered under manager financial application. GABRIELLA met with pt at bedside regarding d/c planning, role explained. Pt alert and oriented x3. Pt's capacity for self-care assessed. Pt is independent at baseline with ADLs and self-care. Pt resides in [place] in a home with her estranged spouse. Pt drives. SW discussed insurance barriers. Pt does not have insurance due to financial barriers. Pt reports that her daughter is assisting her with navigating insurance. Pt declined assistance from ELEVATING GRADER OPERATOR other than resources at bedside. [facility] manager financial application provided to pt at bedside, discussed completing this to receive assistance at the Residency Clinic as well. Pt provided with [place] Health Plan finder brochure as well as oriented to Patient Financial Services contact information in Patient Guide. Pt has no DPOA, would want her daughter to make decisions, not her to whom she is legally but estranged. Pt agreeable to DPOA paperwork, provided at bedside. Pt to d/c home with her family to transport via POV. No d/c needs identified other than PCP follow up, which [facility] is scheduling to place information in d/c instructions. GABRIELLA placed phone number and plan on whiteboard, provided d/c planning checklist. No additional needs. Assessment: Pt who is independent at baseline. Plan: Pt to follow up with [facility] in two weeks. Pt provided with manager financial application, oriented to Pt Financial Services, and provided with [place] Health Plan finder information. Pt to d/c home with her family to transport via POV. No additional needs. Joana Chandler ELEVATING GRADER OPERATOR Addendum: 05/08/17 at 1311 by PRESTON CHANDLER SS Amended: Links added. Addendum: 05/08/17 at 1437 by PRESTON CHANDLER SS [facility] Information in d/c packet. IZABEL Liu
[2017-05-08 13:10] VITALS: BP 125/71; PULSE 66; RESP 18; O2SAT 94
--- NOTE | 2017-05-08 14:58 | PCM.DC.MED ---
Discharge Summary Date of Service May 08, 2017 Dates of Hospitalization Date of Hospital Admission May 05, 2017 at 18:59 Date of Discharge: May 08, 2017 Providers: Admitting Physician: Valarie Adorno DO Primary Care Physician: Kellen Attending Physician: Paco Gipson MD Diagnosis at Time of Discharge Diagnosis at Time of Discharge # severe sepsis due to left pyelonephritis ,poa,active,acute #Escherichia coli bacteremia #Thrombocytopenia, Present on admission. Active. #Alcohol use. #History of HSV 2. #Tobacco dependance Consultations urology Dr Braswell Procedures XRay, CTs & MRIs PROCEDURE: X-RAY RETROGRADE UROGRAPHY INDICATIONS: STENT TECHNIQUE: 5 intra-operative images acquired by the Urology service. COMPARISON: Outside Film, CT, CT ABD PELVIS W CON, 05/05/2017, 14:45. FINDINGS: Contrast is injected and partial visualization of the ureter and collecting system of the urinary tract evaluated is obtained. The laterality of the urinary tract evaluated is not provided, but presumably from CT scanning one day ago it is on the left. The prior CT comparison study is from [facility]. The final image available for review it shows a ureteral stent with upper pigtail partially visualized in the central renal collecting system, and the bladder region of the stent is not available for review. IMPRESSION: Limited study as discussed, presumably reflecting a procedure performed at the left urinary tract. Stent in place, partially visualized on the final image of the examination. The upper third of the stent is partially visualized, the lower two thirds is not available for review. Dictated by: Justin Abernathy M.D. on 05/06/2017 at 13:33 Other Diagnostics DATE OF SURGERY: 05/06/2017 SURGEON: Nerissa Braswell MD PLATE GRAINER: None. PREOPERATIVE DIAGNOSIS(ES): Left hydroureteronephrosis. POSTOPERATIVE DIAGNOSIS(ES): Left hydroureteronephrosis. PROCEDURE PERFORMED: 1. Cystoscopy. 2. Left retrograde pyelogram. 3. Left ureteral stent placement. FINDINGS: 1. Essentially normal left retrograde pyelogram without finding of hydronephrosis or any filling defect. 2. Normal appearing bladder. 3. Orthotopic ureteral orifices. ANESTHESIA: General. ESTIMATED BLOOD LOSS: None. DRAINS: A 6 x 22 left double-J ureteral stent. COMPLICATIONS: None. CONDITION: Stable. Brief History per HPI Ms. 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 Patient reports feeling fine yesterday and around 10:30 this morning she had some mild stomach pain, and suddenly developed 10/10 non radiating sharp left lower abdominal pain and intractable nausea and vomiting. He daughter, Janice, then urged her to the ED at [facility]. She reports many episodes similar to today over the last 5 years, but has declined to see a physician or visit the hospital. The daughter asked if this could be related to "drinking alcohol?" The patient does not believe she will withdraw from ETOH. She reports drinking plenty of water daily. She reports 30 pound weight loss in the last year without trying, although she states she doesn't eat much. She reports fevers, chills, nausea, vomiting, chronic dry cough, abdominal pain. She denies syncope, headache, chest pain, shortness of breath, diarrhea, dysuria. In the room patients vitals: T-37.1, HR-101, RR-16, BP-108/75, 98% 2L. CTA at [facility] - Upload was of very poor quality and a request was made for reupload. There was perinephric stranding, no stone reported, hydronephrosis of theleft side. at [facility] patient received: Levofloxacin, zofran, dilaudid IV, IV NS fluids. Notable Labs at [place]. WBC 1.9, plt 121, Lipase 300, UA neg Hospital Course Ms. 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 Patient is admitted under inpatient status. # severe sepsis due to left pyelonephritis ,poa,active,acute -initial HR 109, BP 92/65, bandemia 20%, initial leukopenia - CT , Left sided hydronephrosis and perinephric stranding, - Dr. Braswell with urology has been consulted, cystoscopy done Essentially normal left retrograde pyelogram without finding of hydronephrosis or any filling defect -she has follow up appointment with Urology on 05/15 - Continue supportive care, 2 L NS bolus given today due to hypotension. treated with IV fluids NS @ 100 ml / hr, IV zofran prn, IV Dilaudid. -Blood cultures 2 collected at [facility] Escherichia coli. Repeat blood culture here [facility] -Ceftriaxone 2 g every 24h.blood culture E coli pansensitive . allergic to penicllin but tolerated Ceftriaxone .discharge on Keflex for 11 days to complete 2 weeks #Escherichia coli bacteremia -Due to above,mx as above #Thrombocytopenia, Present on admission. Active. -due to acohol - Platelets - 119. #Alcohol use. - Patient does not believe she'll withdraw. #History of HSV 2. - Last outbreak 1 week ago. -prescribed vatrex ppx ,1gm bid for 1 day at onset of sxs #Tobacco dependance - Does not believe she'll need nicotine patch. - Discussed tobacco cessation with patient. Disposition:discharged home SW to arrange PCP follow with [facility] or [facility] Exam Vital Signs (Last) Date Time Temp Pulse Resp B/P Pulse Ox O2 Delivery O2 Flow Rate FiO2 05/08/17 13:10 36.6 66 18 125/71 94 Room Air 05/06/17 12:26 8 Exam General: Lady lying in bed in acute distress, well-developed, well-nourished, appropriately interactive HEENT: Normocephalic, atraumatic. External ears without defect. Pupils equal, round, and reactive to light and accommodation. Anicteric sclerae, dry conjunctivae, and no lid lag. Oropharynx free of erythema and cobble stoning with dry mucosa. Neck: Supple with full range of motion. No jugular venous distension. No bruits. No lymphadenopathy or thyromegaly. Cardiovascular: Regular rate and rhythm with no murmurs, rubs, or gallops appreciated Pulmonary: Clear to auscultation bilaterally with no crackles, wheezes, or rhonchi. Normal respiratory effort with no use of accessory muscles. Abdomen: Bowel tones present. Soft, tender to palpation in left lower quadrant, rebound tenderness present, nondistended. No hepatosplenomegaly or masses appreciated. Extremities: No clubbing, cyanosis, edema, or lymphadenopathy appreciated. Skin: Normal temperature, turgor, and texture; no rash, ulcers, or subcutaneous nodules appreciated. Neurological: Cranial nerves grossly intact. Normal muscle strength, tone, and bulk. Reflexes, coordination, and sensory function within normal limits. No known gait impairment. Psychiatric: Normal mood and affect. Alert and oriented to person, place, and time. Test 05/06/17 05:05 05/06/17 12:32 05/07/17 08:15 05/08/17 08:23 Metamyelocytes % 1% (0-0) Hematology Comments Lipase 11U/L (13-60) Urine Color Yellow (YELLOW) Urine Appearance Clear (CLEAR,HAZY) Urine pH 6.0 (5.0-8.0) Urine Specific [place] 1.027 (1.003-1.035) Urine Protein Tracemg/dL (NEG,TRACE) Urine Glucose (UA) Negativemg/dL (NEGATIVE) Urine Ketones Negativemg/dL (NEGATIVE) Urine Occult Blood Small (NEGATIVE) Urine Nitrite Positive (NEGATIVE) Urine Bilirubin Negative (NEGATIVE) Urine Urobilinogen Normalmg/dL (NORMAL) Urine Leukocyte Esterase Small (NEGATIVE) Urine RBC 0-2/hpf (0-2) Urine WBC 11-50/hpf (0-5) Urine Epithelial Cells Few/hpf (NONE-MOD) Urine Crystals None seen (NONE SEEN) Urine Bacteria Few/hpf (NONE-FEW) Urine Hyaline Casts None/lpf (NONE) Urine Granular Casts Rare (NONE SEEN) Urine Waxy Casts None seen (NONE SEEN) Urine Red Blood Cell Casts None seen (NONE SEEN) Urine White Blood Cell Casts None seen (NONE SEEN) Urine Mucus None seen (None Seen) Urine Trichomonas None seen (NONE SEEN) Urine Yeast None (NONE SEEN) Urinalysis Comment None Urine Culture Reflexed Indicated Band Neutrophils % 12% (1-5) Magnesium Level 1.9mg/dL (1.6-2.6) White Blood Count 12.0th/mm3 (3.8-10.1) Red Blood Count 3.51mil/mm3 (3.90-5.20) Hemoglobin 12.1g/dL (12.0-15.6) Hematocrit 34.5% (35.0-46.0) Mean Corpuscular Volume 98.3fL (81-100) Mean Corpuscular Hemoglobin 34.5pg (27.0-35.0) Mean Corpuscular Hemoglobin Concent 35.1% (32.0-37.0) Red Cell Distribution Width 13.4% (12.3-15.4) Platelet Count 82bil/L (150-400) Neutrophils (%) (Auto) 85.5% (40-74) Lymphocytes (%) (Auto) 9.3% (14-46) Monocytes (%) (Auto) 4.3% (4-12) Eosinophils (%) (Auto) 0.4% (0-5) Basophils (%) (Auto) 0.1% (0-3) Sodium Level 139mEq/L (134-144) Potassium Level 4.2mEq/L (3.5-5.2) Chloride Level 104mEq/L (97-108) Carbon Dioxide Level 23mmol/L (18-29) Blood Urea Nitrogen 8mg/dL (8-27) Creatinine 0.65mg/dL (0.57-1.00) Estimat Glomerular Filtration Rate 133mL/min (>59) Glucose Level 80mg/dL (60-99) Calcium Level 8.6mg/dL (8.5-10.1) Total Bilirubin 0.5mg/dL (0.0-1.2) Aspartate Amino Transf (AST/SGOT) 33U/L (0-50) Alanine Aminotransferase (ALT/SGPT) 25U/L (0-32) Alkaline Phosphatase 84U/L (25-165) Total Protein 5.6g/dL (6.4-8.4) Albumin 3.2g/dL (3.4-5.0) Discharge Medications Discharge Medications Cephalexin (Keflex) 500 Mg Capsule 500 MG PO QID Prescribed by: PACO GIPSON MD Valacyclovir (Valacyclovir) 1,000 Mg Tablet 2,000 MG PO BID Prescribed by: PACO GIPSON MD As needed Omeprazole Magnesium (Prilosec Otc) 20 Mg Tablet.dr 20 MG PO DAILY PRN PRN heartburn (Reported) oxyCODONE-Acetaminophen 10-325 mg (oxyCODONE-Acetaminophen 10-325 mg) 1 Each Tablet 1 TAB PO Q4H PRN PRN For Pain Prescribed by: PACO GIPSON MD Followup Plan Disposition: home Discharge Diet: No restrictions Discharge Activity: Limited until seen by PCP Patient Instructions You were hospitalized due to left pyelonephritis and hydronephrosis. Cystoscopy did not reveal hydronephrosis.You also had Escherichia coli bacteremia. Please continue Keflex for 10 more days. Please follow-up with urologist on 05/15/17 at 3 PM with 2:45 PM check in time at Urology clinic ([facility]). Please follow up with new PCP in 1-2 weeks.valacyclovir prescribed for herpes . please take 2000 mg by mouth every 12 hours for 1 day and start DIGNA after onset of symptom. Follow-up Provider: [facility] Follow-up with PCP in: 1 week Provider: Nerissa Braswell MD Follow-up in: 1 week Time spent > 35 minutes coordinating discharge copies to: Nerissa Braswell MD; [facility] Paco Gipson MD May 08, 2017 14:58
--- NOTE | 2017-05-08 15:17 | NUR ---
DC All discharge instruction reviewed with pt and daughter at pts request. Prescriptions in hand and home with pt. All belonging in hand. Per pt and daughter no further questions. Care discontinues.
== END 2017-05-08 15:12 | disposition home or self-care (01) | DRG 872 ==
LOC: OSC 18:59
PROVIDERS: ADMIT Internal Medicine; ATTEND Internal Medicine
PROC: BT1F1ZZ Fluoroscopy of Left Kidney, Ureter and Bladder using Low Osmolar Contrast (ICD-10-PCS; 2017-05-06)
PROC: 0T778DZ Dilation of Left Ureter with Intraluminal Device, Via Natural or Artificial Opening Endoscopic (ICD-10-PCS; principal; 2017-05-06 11:15)
DX: A41.9 Sepsis, unspecified organism (principal); N12 Tubulo-interstitial nephritis, not specified as acute or chronic; D69.6 Thrombocytopenia, unspecified; F17.200 Nicotine dependence, unspecified, uncomplicated; F12.90 Cannabis use, unspecified, uncomplicated; Z66 Do not resuscitate; B96.20 Unspecified Escherichia coli [E. coli] as the cause of diseases classified elsewhere; Z72.89 Other problems related to lifestyle